=== PATIENT | male | born 1965 | race Caucasian/White ===

== ENCOUNTER 2020-04-03 10:30 | Emergency (ER) | payer MEDICAID ==
[~2020-04-03] VITALS: Ht 83.8 cm; Wt 95.3 kg
[2020-04-03 10:37] VITALS: Ht 83.8 cm; Wt 95.3 kg
[2020-04-03 16:48] VITALS: BP 128/81
== END 2020-04-03 16:48 | disposition home or self-care (01) ==
LOC: ED 10:30
DX: S30.0XXA Contusion of lower back and pelvis, initial encounter (principal); M25.551 Pain in right hip; M54.2 Cervicalgia; F17.200 Nicotine dependence, unspecified, uncomplicated; W10.8XXA Fall (on) (from) other stairs and steps, initial encounter; Y93.01 Activity, walking, marching and hiking; Y92.89 Other specified places as the place of occurrence of the external cause; Y99.8 Other external cause status
CPT/HCPCS: 99406; J1885